=== PATIENT | male | born 1945 | race Caucasian/White ===

== ENCOUNTER 2019-04-07 17:47 | Emergency (ER) | payer MEDICARE ==
[~2019-04-07] VITALS: Ht 167.6 cm; Wt 63.5 kg
[2019-04-07 17:50] VITALS: BP_SYST 155
[2019-04-07 20:11] LABS: BASOPHILS % (AUTO) 0.5 % (0.0-2.0); HEMATOCRIT 29.7 % (36-54); HEMOGLOBIN 9.6 g/dL (14.0-18.0); LYMPHOCYTES # (AUTO) 0.5 K/uL (1.0-5.5); MEAN CORPUSCULAR HEMOGLOBIN 36 pg (27-31); MEAN CORPUSCULAR HGB CONC 33 % (32-36); MEAN CORPUSCULAR VOLUME 111 fL (79.0-98.0); MONOCYTES # (AUTO) 0.3 K/uL (0.0-1.0); MONOCYTES % (AUTO) 6.1 % (1.7-9.3); NEUTROPHILS # (AUTO) 4.1 K/uL (1.8-7.7); NEUTROPHILS % (AUTO) 83.4 % (40.0-70.0); PLATELET COUNT (AUTO) 232 K/uL (130-430); RED BLOOD CELL COUNT(AUTO) 2.69 MIL/uL (4.2-6.2); RED CELL DISTRIBUTION WIDTH 23.5 % (9.0-15.0); WHITE BLOOD COUNT (AUTO) 4.9 K/uL (4.8-10.8)
[2019-04-07] MEDS ORDERED: PIPERACILLIN/TAZO 3.375 GM in NS 50 ML IV ONE (20:45)
[2019-04-07 21:51] LABS: ALANINE AMINOTRANSFERASE 517 U/L (12-78); ALBUMIN 2.5 g/dL (3.4-4.8); ANION GAP 5 (5-15); ASPARTATE AMINOTRANSFERASE 272 U/L (10-37); CHLORIDE 105 mmol/L (98-107); GLUCOSE 178 mg/dL (70-99); LIPASE 333 U/L (73-393); POTASSIUM 4.9 mmol/L (3.5-5.1); SODIUM SERUM 136 mmol/L (136-145); TOTAL BILIRUBIN 0.6 mg/dL (0.0-1.0); UREA NITROGEN, BLOOD 58 mg/dL (8-21)
[2019-04-07 22:00] LABS: CALCIUM 8.2 mg/dL (8.4-11.0)
[2019-04-07] MEDS ORDERED: MORPHINE 2 MG/ML INJ. SYRINGE IVP ONE (22:15)
[2019-04-07] MEDS ORDERED: ONDANSETRON HCL 4 MG/2 ML VIAL IVP ONE (22:15)
[2019-04-07] MEDS ORDERED: PIPERACILLIN/TAZOBACTAM 3.375 GM/VIAL (ZOSYN) IV ONE (22:20)
[2019-04-08 00:24] LABS: INR 1.3 (0.80-1.20); PROTHROMBIN TIME 12.7 SECS (9.5-12.5)
[2019-04-08 01:37] LABS: BILIRUBIN,URINE NEGATIVE (NEGATIVE); BLOOD, URINE NEGATIVE (NEGATIVE); CLARITY/URINE CLEAR (CLEAR); COLOR,URINE YELLOW (YELLOW); GLUCOSE,URINE NEGATIVE (NEGATIVE); KETONES,URINE NEGATIVE (NEGATIVE); LEUKOCYTE ESTERASE ,URINE NEGATIVE (NEGATIVE); NITRITE, URINE NEGATIVE (NEGATIVE); PH,URINE 5.5 (5.0-8.0); PROTEIN URINE TRACE (NEGATIVE); UROBILINOGEN,URINE 0.2 (0.2-1.0)
[2019-04-08 01:40] LABS: BACTERIA,URINE FEW /HPF (None Seen); RBC,URINE 0-3 /HPF (0-3); WBC,URINE 0-3 /HPF (0-3)
[2019-04-08 02:47] VITALS: BP_SYST 156
== END 2019-04-08 02:47 | disposition short-term general hospital (02) ==
LOC: SED 17:47
DX: K81.9 Cholecystitis, unspecified (principal); D53.9 Nutritional anemia, unspecified; R60.0 Localized edema; Z95.1 Presence of aortocoronary bypass graft; Z87.442 Personal history of urinary calculi
CPT/HCPCS: 36415; 71045; 74176; 80053; 81000; 83605; 83690; 83880; 85025; 85610; 87040; 87086; 96365; 96375; 99285; J2270; J2405; J2543

== ENCOUNTER 2019-05-04 15:13 | Emergency (ER) | payer MEDICARE ==
[~2019-05-04] VITALS: Ht 167.6 cm; Wt 63.5 kg
--- NOTE | 2019-05-04 15:13 | NUR ---
Placed in room 01 . Placed on color television console monitor, blood pressure machine and pulse oximeter. To gown for exam. Side rails up. Report given to SALTY Panda
--- NOTE | 2019-05-04 15:16 | NUR ---
ER at bedside examining patient.
--- NOTE | 2019-05-04 15:18 | NUR ---
Pt brought in by ALS ambulance. Pt A/ox4. Pt states that he has been having shortness of breath for the duration of the morning with increasing severity. Pt denies chest pain, nausea, vomiting, dizziness, blurred vision. Pt states no other medical complaint at this time. Pt Vss, pt resting in bed in high fowlers position for comfort and airway support. Pt given blanket for comfort.
[2019-05-04] MEDS ORDERED: MAGNESIUM SULFATE 50 ML IV ONE (15:30)
[2019-05-04] MEDS ORDERED: IPRATROPIUM/ALBUTEROL SULFATE 3 ML AMPUL.NEB (DUONEB) INH ONE (15:30)
--- NOTE | 2019-05-04 15:45 | NUR ---
Pt Resting in bed, alert oriented, bedside speaking with to encourage non-refusal of medical care
[2019-05-04 15:47] LABS: BILIRUBIN,URINE NEGATIVE (NEGATIVE); BLOOD, URINE NEGATIVE (NEGATIVE); CLARITY/URINE CLEAR (CLEAR); COLOR,URINE YELLOW (YELLOW); GLUCOSE,URINE NEGATIVE (NEGATIVE); KETONES,URINE NEGATIVE (NEGATIVE); LEUKOCYTE ESTERASE ,URINE NEGATIVE (NEGATIVE); NITRITE, URINE NEGATIVE (NEGATIVE); PROTEIN URINE NEGATIVE (NEGATIVE); UROBILINOGEN,URINE 0.2 (0.2-1.0)
--- NOTE | 2019-05-04 16:00 | NUR ---
Pt refusing IV access.
--- NOTE | 2019-05-04 16:15 | NUR ---
Pt VSS, resting in bed comfortably. No acute distress noted.
[2019-05-04 16:18] LABS: HEMATOCRIT 26.1 % (36-54); HEMOGLOBIN 8.6 g/dL (14.0-18.0); MEAN CORPUSCULAR HEMOGLOBIN 34 pg (27-31); MEAN CORPUSCULAR HGB CONC 33 % (32-36); MEAN CORPUSCULAR VOLUME 105 fL (79.0-98.0); PLATELET COUNT (AUTO) 136 K/uL (130-430); RED CELL DISTRIBUTION WIDTH 23.3 % (9.0-15.0); WHITE BLOOD COUNT (AUTO) 7.5 K/uL (4.8-10.8)
[2019-05-04 16:24] LABS: ANION GAP 6 (5-15); CALCIUM 8.1 mg/dL (8.4-11.0); CHLORIDE 103 mmol/L (98-107); CREATININE 2.24 mg/dL (0.55-1.30); GLUCOSE 186 mg/dL (70-99); POTASSIUM 3.8 mmol/L (3.5-5.1); SODIUM SERUM 135 mmol/L (136-145); UREA NITROGEN, BLOOD 40 mg/dL (8-21)
[2019-05-04 16:28] LABS: INR 2.9 (0.80-1.20); PROTHROMBIN TIME 28.2 SECS (9.5-12.5)
[2019-05-04 16:30] LABS: ALANINE AMINOTRANSFERASE 22 U/L (12-78); ALBUMIN 2.3 g/dL (3.4-4.8); ASPARTATE AMINOTRANSFERASE 31 U/L (10-37)
[2019-05-04] MEDS ORDERED: PIPERACILLIN/TAZO 3.375 GM in NS 50 ML IV ONE (16:30)
--- NOTE | 2019-05-04 16:30 | NUR ---
Pt refusing External Jugular IV access
--- NOTE | 2019-05-04 16:35 | NUR ---
Bedside with patient explaining risks and benefits of intravenous medication therapy and need for iv access.
[2019-05-04 16:37] LABS: BAND % (MANUAL) 1 % (0-6); BASOPHILS % (MANUAL) 0 % (0-2); EOSINOPHILS % (MANUAL) 0 % (0-7); LYMPHOCYTES % (MANUAL) 16 % (20-46); MONOCYTES % (MANUAL) 6 % (0-11); MYELOCYTES % 1 % (0-0)
[2019-05-04] MEDS ORDERED: FUROSEMIDE 40 MG/4 ML VIAL IVP ONE (17:15)
[2019-05-04] MEDS ORDERED: PIPERACILLIN/TAZOBACTAM 3.375 GM/VIAL (ZOSYN) IV ONE (17:26)
--- NOTE | 2019-05-04 17:45 | NUR ---
Pt refusing IV Access performed by Physician
--- NOTE | 2019-05-04 17:45 | NUR ---
Pt Refusing Oral Medications
[2019-05-04] MEDS ORDERED: FUROSEMIDE 20 MG TABLET PO ONE (18:00)
--- NOTE | 2019-05-04 18:00 | NUR ---
bedside speaking with patient, encouraging compliance with physician orders.
--- NOTE | 2019-05-04 18:56 | NUR ---
Pt will be transferred to [facility]. Pt refusing additional care at [facility]
[2019-05-04 19:18] VITALS: BP_SYST 151
--- NOTE | 2019-05-04 19:18 | NUR ---
Patient to be transferred to [facility]. Is being transferred due to higher level of care. Receiving facility has accepting physician and available space. ER physician has signed transfer form. Patient or responsible republican has agreed to transfer and signed form. Patient belongings inventoried and will be sent with patient. Copy of nursing notes, lab reports, EKG, Physicians Orders and X-rays to be sent with patient. Report called to Charge nurse at receiving facility. Receiving physician is Momo. [facility] service has been called for transfer. [facility] is on scene to transport
== END 2019-05-04 19:18 | disposition short-term general hospital (02) ==
LOC: SED 15:13
DX: J44.1 Chronic obstructive pulmonary disease with (acute) exacerbation (principal); E87.70 Fluid overload, unspecified; I11.0 Hypertensive heart disease with heart failure; I50.9 Heart failure, unspecified; N28.9 Disorder of kidney and ureter, unspecified; E11.9 Type 2 diabetes mellitus without complications; I25.2 Old myocardial infarction
CPT/HCPCS: 36415; 36600; 71045; 80053; 81003; 82803; 83605; 83880; 84484; 85007; 85027; 85610; 85730; 87040; 87086; 93005; 94640; 99285; J2543; J7620; J3475

== ENCOUNTER 2019-06-11 22:31 | Emergency (ER) | payer MEDICARE ==
[~2019-06-11] VITALS: Ht 167.6 cm; Wt 63.5 kg
[2019-06-11 22:31] VITALS: BP_SYST 168
--- NOTE | 2019-06-11 22:31 | NUR ---
Patient to ER bed 3 to gown for evaluation. Side rails up.
--- NOTE | 2019-06-11 22:35 | NUR ---
Pt brought in by ambulance. Pt awake, alert, oriented x4. Pt states cheif compliant of itchy rash on trunk and wheezes. Pt states that he has eaten rice approx 3 days ago and thinks that he is having allergic reaction. Pt states that he has not has allergy in the past. Pt states that he has also been feeling weak. Pt Denies chest pain, nausea, vomiting, Diarrhea at this time. Pt states that he wanted to be taken to [facility]. Pt is refusing all care and evaluation.
--- NOTE | 2019-06-11 22:35 | NUR ---
ER at bedside examining patient.
--- NOTE | 2019-06-11 22:45 | NUR ---
Pt refusing EKG
--- NOTE | 2019-06-11 22:50 | NUR ---
Pt refusing blood draw
--- NOTE | 2019-06-11 23:15 | NUR ---
Pt refusing all medical care ad [facility]. Consented only to Xray and EKG. Pt refusing all additional care. Pt states he will recieve care at [facility]
[2019-06-12] MEDS ORDERED: IPRATROPIUM/ALBUTEROL SULFATE 3 ML AMPUL.NEB (DUONEB) INH ONE
--- NOTE | 2019-06-12 00:30 | NUR ---
Spoke with of patient Selina. States that patient has left AMA on multiple occasions, is non-compliant with medical care, medications. states that patient is consistently refusing medical care, despite degrading health conditions. states that patient also refuses medications from her. She states that she is concerned for his health, as he continually refuses medical care, medications and treatment. Provided spouse with resources for caregivers and respite care.
--- NOTE | 2019-06-12 01:00 | NUR ---
[facility] arrived to transport patient and were cancelled as patient requires ALS transport.
--- NOTE | 2019-06-12 01:30 | NUR ---
Pt refusing additional vital signs/ treatment
[2019-06-12 02:00] VITALS: BP_SYST 163
--- NOTE | 2019-06-12 02:00 | NUR ---
Pt consented to discharge vital signs
--- NOTE | 2019-06-12 02:00 | NUR ---
Patient to be transferred to [facility]. Is being transferred due to higher level of care. Receiving facility has accepting physician and available space. ER physician has signed transfer form. Patient or responsible republican has agreed to transfer and signed form. Patient belongings inventoried and will be sent with patient. Copy of nursing notes, lab reports, EKG, Physicians Orders and X-rays to be sent with patient. Report called to receiving facility. Receiving physician is ED physician . [facility] on scene to transport patient
--- NOTE | 2019-06-12 02:00 | NUR ---
Report called to ED Report Nurse KP,RN
== END 2019-06-12 02:00 | disposition short-term general hospital (02) ==
LOC: SED 22:31
DX: J18.9 Pneumonia, unspecified organism (principal); I10 Essential (primary) hypertension; E11.9 Type 2 diabetes mellitus without complications
CPT/HCPCS: 71045; 93005; 94640; 99285; J7620; 87040-TC